=== PATIENT | male | born 1960 | race Caucasian/White ===

== ENCOUNTER 2016-11-28 20:36 | Emergency (ER) | payer OTHER ==
--- NOTE | ~2016-11-28 | ER ---
PATIENT'S NAME: KWAN AGUSTIN [facility] AGE: 56 Y [address] ROOM: [place] [address] LOCATION: [facility] ADMIT DATE: 11/28/2016 ER/Outpatient Report DISCHARGE DATE: 11/28/2016 FAMILY PHYSICIAN: Monico Leavitt MD ATTENDING PHYSICIAN: Manjeet Ron Admission date and time documented on the medical record. I saw the patient at 2050 hours. CHIEF COMPLAINT: Laceration, left fifth small finger. HISTORY OF PRESENT ILLNESS: This patient is a 56-year-old male, about 45 minutes ago suffered a laceration across horizontally mid distal phalanx, palmar surface, left fifth small finger. Did cut it with a utility knife. No other injuries. No other complaints. HOME MEDICATIONS: None. ALLERGIES: NONE. SOCIAL HISTORY: Nonsmoker, nondrinker. SIGNIFICANT PAST MEDICAL HISTORY: Negative. OPERATIONS: None. REVIEW OF SYSTEMS: All systems reviewed by me are negative with the exception of those discussed in the history of present illness. PHYSICAL EXAMINATION: VITAL SIGNS: Temperature 98, tympanic; pulse 76; respirations 18; blood pressure 162/90; O2 saturation on room air is 96%. EXTREMITIES: The patient has a horizontal laceration, mid palmar surface, distal phalanx, left fifth small finger. Bleeding controlled. Neurovascularly intact. Laceration is into the subcutaneous tissue. He has good movement. Good sensation. PATIENT'S NAME: KWAN AGUSTIN [facility] AGE: 56 Y [address] ROOM: [place] [address] LOCATION: [facility] ADMIT DATE: 11/28/2016 ER/Outpatient Report DISCHARGE DATE: 11/28/2016 FAMILY PHYSICIAN: Monico Leavitt MD ATTENDING PHYSICIAN: Manjeet Ron EMERGENCY DEPARTMENT COURSE: Wound was cleansed with Betadine and normal saline. A 1% Xylocaine was used for local infiltration of anesthesia. Wound was closed in simple and mattress fashion with 4-0 Ethilon suture. The patient tolerated the procedure well. Wound was cleansed and dressed. Tetanus was updated. IMPRESSION: A 2-cm laceration, distal phalanx, left small finger, with simple closure. PLAN: The patient dismissed home. Observation. Activity as tolerated. Keep wound clean. Watch for infection. Cleanse and dress wound daily with mild soap and water. Follow up with personal physician in 10 days for suture removal or sooner if needed. Discussion ensued with the patient concerning my findings and recommendations, he understands. MD JOVANNY PINZON/hoda /[id number] d: 11/29/16212 t: 11/29/16 1829, OUTPATIENT REPORT
== END 2016-11-28 21:18 | disposition disaster alternative care site (69) ==
LOC: GACC 20:36
PROC: 0HQGXZZ Repair Left Hand Skin, External Approach (ICD-10-PCS; principal; 2016-11-28)
DX: S61.217A Laceration without foreign body of left little finger without damage to nail, initial encounter (principal); Z23 Encounter for immunization; W26.0XXA Contact with knife, initial encounter